=== PATIENT | female | born 1960 | race Caucasian/White ===

== ENCOUNTER 2021-07-05 14:08 | Emergency (ER) | payer OTHER ==
[2021-07-05] MEDS ORDERED: ZANAFLEX2 MG PO (19:23)
== END 2021-07-05 19:34 | disposition home or self-care (01) ==
LOC: ER1 14:08
DX: S16.1XXA Strain of muscle, fascia and tendon at neck level, initial encounter (principal); I10 Essential (primary) hypertension; F41.9 Anxiety disorder, unspecified; V49.9XXA Car occupant (driver) (passenger) injured in unspecified traffic accident, initial encounter
CPT/HCPCS: 70450; 71045; 72125; 99284